=== PATIENT | male | born 1950 | race Caucasian/White ===

== ENCOUNTER 2021-01-01 14:50 | Inpatient (IN) | payer MEDICARE, MEDICAID ==
--- NOTE | 2021-01-01 15:10 | NUR ---
Admission Note with Justification for Admission to [facility] Patient admitted to [facility] for protective oversight for emergency stabilization of acute psychiatric crisis. Pt admitted from: SNF Mode of arrival: EMS Accompanied By: EMS Precipitating behaviors that initiated intake and admission: Patient was reported to be depressed, oversleeping, under eating, refusing medications, stating he wanted to , and had plan to overdose on medications Description of failure of out patient attempts at stabilization in previous setting list behavior and medication trials: None attempted Behaviors and assessment findings upon admission: Patient depressed, calm, and cooperative on arrival. He is mildly confused to day/date and situation, stating that he is here to have his medications adjusted and that he would only be here for about 3 days. Patient stayed withdrawn to room after assessment, declining to go to the day room. He states he still wants to but did not answer when asked if he had a plan. Plan: Admit for protective oversight for adjustment and stabilization of medications, behaviors and mood. Intense treatment regimen including groups, medication adjustments, therapy, consistent regimen for ADL's, self care, and sleep hygiene. Daily monitoring by Inpatient staff, Psychiatry, and Medical Physician.
[2021-01-01] MEDS ORDERED: DULO60CA6 PO (15:27)
[2021-01-01] MEDS ORDERED: METF1000 PO (15:27)
[2021-01-01] MEDS ORDERED: ACET325T21 PO (15:27)
[2021-01-01] MEDS ORDERED: ONDA-84 PO (15:27)
[2021-01-01] MEDS ORDERED: GLIP5TAB10 PO (15:27)
[2021-01-01] MEDS ORDERED: LISI20TA18 PO (15:27)
[2021-01-01] MEDS ORDERED: DICL75TA PO (15:27)
[2021-01-01] MEDS ORDERED: MAGNESIUM HYDROXIDE 2,400 MG/30 ML ORAL.SUSP. PO PRN (15:30)
[2021-01-01] MEDS ORDERED: MAG HYDROX/AL HYDROX/SIMETH 30 ML ORAL.SUSP PO PRN (15:30)
[2021-01-01] MEDS ORDERED: ACETAMINOPHEN 325 MG TABLET PO PRN (15:30)
[2021-01-01] MEDS ORDERED: METHYL SALICYLATE/MENTHOL TOPICAL OINTMENT 57GM TUBE. TP PRN (15:30)
[2021-01-01] MEDS ORDERED: ONDANSETRON ODT 4 MG TAB.RAPDIS PO PRN (16:00)
--- NOTE | 2021-01-01 17:02 | RAD ---
CT HEAD/BRAIN WO History: Reason: ams / Spl. Instructions: / History: Comparison: May 29, 2020 Technique: Noncontrast CT imaging was performed of the head. Exposure: One or more of the following individualized dose reduction techniques were utilized for thi s examination: 1. Automated exposure control 2. Adjustment of the mA and/or kV according to patient size 3. Use of iterative reconstruction technique. Findings: No intracranial hemorrhage. Moderately dilated lateral and third ventricles, unchanged. Crowding of sulci at the skull vertex. Pr ominence of the sylvian fissures. Moderate foci of decreased attenuation within the hemispheric white matter, most often due to chronic microvascular ischemia, unchanged. Chronic right basal ganglia lacunar infarct. Imaged orbits are unremarkable. Mild paranasal sinus mucosal thickening. Mastoid air cells are clear. No acute calvarial fracture. Impression: 1. No acute intracranial abnormality. 2. Unchanged dilated ventricles with additional findings suggestive of normal pressure hydrocephalus in the appropriate clinical setting. Electronically signed by: Jimmy Saucedo DO (01/01/2021 5:00 PM) MELE
[2021-01-01] MEDS: glipiZIDE 5 MG TABLET PO SCH (17:43)
[2021-01-01] MEDS: metFORMIN 500 MG TABLET PO SCH (17:43)
[2021-01-01 19:46] LABS: BASO % 0 % (0-3); EOS # 0.3 x10^3/uL (0.0-0.7); EOS % 3 % (0-3); HEMOGLOBIN 13.4 g/dL (13.0-17.5); LYMPH # 1.9 x10^3/uL (1.0-4.8); LYMPH % 21 % (24-48); MEAN CORPUSCULAR HEMOGLOBIN 31 pg (25-35); MEAN CORPUSCULAR HGB CONC 33 g/dL (31-37); MEAN CORPUSCULAR VOLUME 94 fL (79-100); MONO # 0.4 x10^3/uL (0.0-1.1); MONO % 5 % (0-9); NEUT # 6.3 x10^3uL (1.8-7.7); NEUT % 70 % (31-73); PLATELET COUNT 306 x10^3/uL (140-400); RED BLOOD COUNT 4.38 x10^6/uL (4.30-5.70); RED CELL DISTRIBUTION WIDTH 14.5 % (11.5-14.5); WHITE BLOOD COUNT 8.9 x10^3/uL (4.0-11.0)
[2021-01-01 20:00] LABS: ALBUMIN 3.7 g/dL (3.4-5.0); TOTAL PROTEIN 7.4 g/dL (6.4-8.2)
[2021-01-01 20:01] LABS: CREATININE 1.4 mg/dL (0.7-1.3); GFR 50.2; MAGNESIUM 1.9 mg/dL (1.8-2.4); POTASSIUM 4.3 mmol/L (3.5-5.1); TOTAL BILIRUBIN 0.3 mg/dL (0.2-1.0)
[2021-01-01] MEDS: DICLOFENAC SODIUM 25 MG TABLET.DR PO SCH (21:02)
--- NOTE | 2021-01-01 21:05 | HP ---
ADMIT DATE: 01/01/2021 PSYCHIATRIC ADMISSION HISTORY AND EVALUATION This note covers elements not covered in my initial note 01/01/2021. IDENTIFYING DATA: The patient is a 70-year-old male referred to us from [facility] by Dr. Dailey, his primary care physician and at the behest of his , Amira Souza, who is his DPOA on account of worsening symptoms of depression, consequent to recognition of his short-term memory loss and suicidal ideation. The patient reportedly has been speaking to staff about overdosing. He was depressed about his impaired memory. Sleeping excessively, missing meals, tearful, noncompliant with treatment. He had failed outpatient psychiatric interventions. CHIEF COMPLAINT: "I came here today. Yes, I get depressed. I'm losing my memory." HISTORY OF PRESENT ILLNESS: The patient relates symptoms of depression, feeling hopeless, helpless, worthless with fleeting suicidal ideation, no plans, intent or attempt. He does have short-term memory deficits, which appear to be worsening. In the past, he does have a history of suicide attempt, but nothing recently. No clear history of bipolar disorder. PAST PSYCHIATRIC HISTORY: As above. MEDICAL HISTORY: Positive for low back pain, unsteadiness on feet, repeated falls, type 2 diabetes mellitus, Alzheimer's disease. ACCU-CHEKS: None. CODE STATUS: Full code. ALLERGIES: Negative. DIET: Diabetic regular. Ambulates with walker with assist. CURRENT PSYCHOTROPICS: Cymbalta 60 mg a day. FAMILY HISTORY: Noncontributory. SOCIAL HISTORY: No history of alcohol, drug abuse, physical, sexual or elder abuse. He is not known to be a perpetrator. REACTION TO HOSPITALIZATION: The patient accepting of it. ASSETS: Supportive family, stable living at the facility. REVIEW OF SYSTEMS: Ambulation impaired, in wheelchair. No CV, , pulmonary, eye, ENT system symptoms on review. MENTAL STATUS EXAMINATION: The patient is oriented to himself and situation. Speech has some latency, coherent. Abstraction fair, computation impaired, language function intact, attention span short. Mood and affect depressed, anxious, somewhat paranoid. No active suicidal ideation. He does have short-term memory deficits. LABORATORY DATA: Reviewed. IMPRESSION: Major depressive disorder, recurrent, severe; mild cognitive impairment versus major neurocognitive disorder, vascular Alzheimer's with delusion, depression; anxiety disorder, unspecified; impulse control disorder, unspecified. Rest as above. PLAN: Admit to Geropsychiatry Unit at [facility]. I will see the patient daily individually from a psychiatric standpoint. Medical followup with Dr. Dailey/Dr. Avendano. Continue current psychotropics. Observe baseline, adjust further as clinically indicated. ESTIMATED LENGTH OF STAY: 10-12 days. DISPOSITION: Plans back to [facility] when stable. IVAN CARRIZALES MD DR: DONNA/mackenzie JOB#: [id number] / [id number]
--- NOTE | 2021-01-01 22:45 | PDOC ---
Exam Note: Gold Note: Please also refer to the separate dictated note~for this date of service dictated separately.~Patient seen individually. Discussed the patient with Nursing staff reviewed the chart.~Reviewed interim history and current functioning. Reviewed vital signs,~Labs/ Radiology~and current medications noted below. Continue current treatment with the changes noted in the dictated addendum note Assessment: Labs: Laboratory Tests Test 01/01/21 19:24 White Blood Count 8.9 x10^3/uL (4.0-11.0) Red Blood Count 4.38 x10^6/uL (4.30-5.70) Hemoglobin 13.4 g/dL (13.0-17.5) Hematocrit 41.0 % (39.0-53.0) Mean Corpuscular Volume 94 fL (79-100) Mean Corpuscular Hemoglobin 31 pg (25-35) Mean Corpuscular Hemoglobin Concent 33 g/dL (31-37) Red Cell Distribution Width 14.5 % (11.5-14.5) Platelet Count 306 x10^3/uL (140-400) Neutrophils (%) (Auto) 70 % (31-73) Lymphocytes (%) (Auto) 21 % (24-48) L Monocytes (%) (Auto) 5 % (0-9) Eosinophils (%) (Auto) 3 % (0-3) Basophils (%) (Auto) 0 % (0-3) Neutrophils # (Auto) 6.3 x10^3uL (1.8-7.7) Lymphocytes # (Auto) 1.9 x10^3/uL (1.0-4.8) Monocytes # (Auto) 0.4 x10^3/uL (0.0-1.1) Eosinophils # (Auto) 0.3 x10^3/uL (0.0-0.7) Basophils # (Auto) 0.0 x10^3/uL (0.0-0.2) D-Dimer (Clari) 0.30 mg/L (0.00-0.50) Sodium Level 145 mmol/L (136-145) Potassium Level 4.3 mmol/L (3.5-5.1) Chloride Level 107 mmol/L (98-107) Carbon Dioxide Level 28 mmol/L (21-32) Anion Gap 10 (6-14) Blood Urea Nitrogen 23 mg/dL (8-26) Creatinine 1.4 mg/dL (0.7-1.3) H Estimated GFR (Cockcroft-Gault) 50.2 BUN/Creatinine Ratio 16 (6-20) Glucose Level 142 mg/dL (70-99) H Calcium Level 9.0 mg/dL (8.5-10.1) Magnesium Level 1.9 mg/dL (1.8-2.4) Total Bilirubin 0.3 mg/dL (0.2-1.0) Aspartate Amino Transferase (AST) 13 U/L (15-37) L Alanine Aminotransferase (ALT) 20 U/L (16-63) Alkaline Phosphatase 50 U/L (46-116) Total Protein 7.4 g/dL (6.4-8.2) Albumin 3.7 g/dL (3.4-5.0) Albumin/Globulin Ratio 1.0 (1.0-1.7) Current Medications: Meds: Current Medications Medications (Trade) Dose Ordered Sig/Kaylee Route PRN Reason Start Time Stop Time Status Last Admin Dose Admin Glipizide (Glucotrol) 5 mg BIDWMEALS PO 01/01/21 17:00 01/01/21 17:43 Diclofenac Sodium (Voltaren) 75 mg BID PO 01/01/21 21:00 01/01/21 21:02 Metformin HCl (Glucophage) 1,000 mg BIDWMEALS PO 01/01/21 17:00 01/01/21 17:43 I have reviewed the current psychotropics carefully including drug interactions. Risk benefit ratio favors no change other than as noted in my dictated progress note. Diagnosis: Problems: (1) Major depressive disorder, recurrent episode, severe (2) Mild cognitive impairment (3) Major neurocognitive disorder (4) Dementia in Alzheimer's disease with delusions (5) Dementia in Alzheimer's disease with depression (6) Dementia of Alzheimer's type with behavioral disturbance (7) Dementia, vascular, with delusions (8) Dementia, vascular, with depression (9) Impulse control disorder, unspecified (10) Anxiety disorder, unspecified IVAN CARRIZALES MD Jan 01, 2021 22:45
[2021-01-01 22:48] VITALS: BP 126/73
--- NOTE | 2021-01-02 01:32 | NUR ---
PT APPROACHED FOR ASSESSMENT IN DAY . PT WAS COOPERATIVE DURING ASSESSMENT. PT TOOK HS MEDS WHOLE W/O DIFFICULTY. PT HAS ROOMMATE THAT CAN BE IMPULSIVE AT TIMES AND CAUSES BED ALARM TO SOUND. PT EXPRESSES HOW THIS CAUSES HIM DIFFICULTY WHILE TRYING TO SLEEP. PT HAS NO OTHER COMPLAINTS OR BEHAVIORS AT THIS TIME. WILL CONTINUE TO MONITOR.
[2021-01-02 05:35] VITALS: BP 151/83
--- NOTE | 2021-01-02 07:37 | EKG ---
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
[2021-01-02] MEDS: glipiZIDE 5 MG TABLET PO SCH ×2 (08:00→16:53)
[2021-01-02] MEDS: metFORMIN 500 MG TABLET PO SCH ×2 (08:20→16:53)
[2021-01-02] MEDS: DULoxetine HCL 60 MG CAPSULE.DR PO SCH (08:21)
[2021-01-02] MEDS: LISINOPRIL 20 MG TABLET PO SCH (08:21)
[2021-01-02] MEDS: DICLOFENAC SODIUM 25 MG TABLET.DR PO SCH ×2 (08:23→20:15)
[2021-01-02] MEDS ORDERED: FLU VACC QS 2020-21(6MOS+)/PF 0.5 ML SYRINGE. VAX IM ONE (09:00)
--- NOTE | 2021-01-02 11:15 | NUR ---
WEEKLY ACTIVITY THERAPY NOTE Date of Admission: 01/01/2021 Date of AT Assessment: TBD Precipitating behaviors that initiated intake and admission: Patient was reported to be depressed, oversleeping, under eating, refusing medications, stating he wanted to , and had plan to overdose on medications Goal aimed: TBD Initial Goal: TBD Weekly progress towards goal: NA Group participation level: NA Weekly highlights: arrived on unit Behaviors observed: new patient Plan: meet/ assess Pt Beneficial adaptations:
--- NOTE | 2021-01-02 11:50 | NUR ---
Treatment team orders as followed for today. Exelon Patch 4.6mg for 3 days then increase to 9.5mg, !mg Abilify added daily, Remeron 7.5mg QHS to help with sleeping. Also CT scan if not done. Was done on 01/01/21. Printed and copy placed in Dr José Miguel connelly. All orders placed.
--- NOTE | 2021-01-02 13:50 | NUR ---
PSYCHOSOCIAL ASSESSMENT ADMISSION DATE: 01/01/21 CONTACT INFORMATION: DPOA/Guardian Contact Name: Amira Souza- Contact Phone #: [phone] ETHNIC ORIGIN: REASONS FOR ADMISSION: Depressed Sig. Change Sleep Suicidal ideation ADDITIONAL ADMISSION COMMENTS: Per intake record, pt experiencing suicidal ideation, speaking to staff at facility about overdosing, depressed about his impaired memory, sleeping more, missing meals, tearful. REASON FOR ADMISSION IN PATIENT/FAMILY'S OWN WORDS: Per , "He is somewhat irritated and does not like change. We haven't been able to see each other in quite sometime, so this pandemic has caused more problems. He has been making suicidal statements at the facility about overdosing. He seems to have quite a bit of shaking and his paternal uncle had Parkinson's as does his brother in [place]; a mild case." PATIENT/FAMILY EXPECTATIONS FOR ADMISSION: Per , pt is an introvert and pretty much sticks to himself. She would like to see medications adjusted to help with mood, improve positive thinking, and eliminate suicidal thoughts. Pt reports that he knows his medications will be adjusted to help him. LIVING SITUATION: Patient lives with: [facility] Other living arrangements: [facility] Contact Name: Arabella Contact Address: [address] [place] [address] Contact Phone #: [phone] Contact Fax #: [phone] FAMILY RELATIONS: Marital Status: # of Marriages: 2 # of Children: 5 [facility] Family Support: Concerned Cooperative Involved in [place] Planning Additional Comments r/t Family: Pt has been to his , Amira Souza, for 16 years. He has two children from a previous marriage. Amira has three children; combined they have five. His children live locally. There isn't much contact with his children, with the exception of his oldest son calling him occasionally. Pt reports his oldest son to be Tonny who is about 30 y.o. and has two daughters of his own. Pt states that he has his hands full. Pt's parents are and he is the youngest of two. His brother, Kwadwo, is about eight years older than him. Pt's brother currently lives in [place]. SIGNIFICANT PSYCHIATRIC/MEDICAL HISTORY: Psychiatric/Treatment History: None Pertinent Family History: No psychiatric treatment. Paternal uncle and brother with Parkinson's. HISTORICAL DATA: Childhood Environment: [place] Nurturing Supportive Childhood Environment Additional Comments: Pt parents who are were considered to be loving and nurturing. Trauma History: None Is Trauma: Additional Comments: None Drug Abuse History last 12 months: No PERSONAL HISTORY: Vocational history: Pt worked for [employer] which is [employer] for 42 years. He worked his way up from [employer] into [employer]. service: N [employer] background: None Sexual orientation: Heterosexual Educational Level: Completed high school at [employer] in [facility]. Past/Present Interests/Hobbies: Painting, working on [employer], drawing, watching sports on television Financial support/resources: [facility]/Pension Monthly income: Unknown/Adequate Person handling finances: /DPOA Do you have a history of legal problems: N Cultural considerations: None SOCIAL RELATIONSHIPS-CURRENT/PAST: Psychiatrist: JANA Sequeira PCP: Dr. Dailey Counselor/Therapist: None Veterans' Administration: None Support Group: None [employer]: None Other relationships: /DPCHELSEA-Amira STRENGTHS & WEAKNESSES: Patient's strengths: Good family support Good verbal skills Stable living arrange Financial support Ambulatory Approachable Engaged Other patient strengths: Patient's weaknesses: Poor social skills Health problems Other Other patient weaknesses: Introvert, negative thought processing PRELIMINARY PLAN OF TREATMENT: Preliminary plan: Dec. Symp. Depression Decrease Isolation Promote Coping Skill Medication Stabilization Monitor Med Effects Control abnormal behavior Other preliminary treatment comments: While at [facility], pt will be encouraged to attend SW and recreational therapy groups. He will report any negative thoughts or suicidal ideation to medical staff. DISCHARGE PLANNING: Discharge planning/disposition: Current Living Arrange. Additional discharge needs identified: None at this time. ADDITIONAL INFORMATION: Other Pertinent Data: /DPCHELSEA is aware of treatment and available as needed for further needed information.
--- NOTE | 2021-01-02 14:13 | TX PLAN ---
Interdisciplinary Tx Plan Admission Information Jan 01, 2021 at 14:50 Legal Status (on Admission): Voluntary DPOA/Guardian Name: Amira Souza- Contact Other Contact Name: Madina/Arline Other Contact Verified Code Status: Full Code Allergies: Coded Allergies: No Known Drug Allergies (Unverified , 01/01/21) Diagnoses Primary Diagnosis: Major depressive disorder, recurrent, severe; mild cognitive impairment versus major neurocognitive disorder, vascular Alzheimer's with delusion, depression; anxiety disorder, unspecified; impulse control disorder, unspecified. Reasons for Admission: Depressed, Sig. Change Sleep, Suicidal ideation Problem in Patient's Words: Per , "He is somewhat irritated and does not like change. We haven't been able to see each other in quite sometime, so this pandemic has caused more problems. He has been making suicidal statements at the facility about overdosing. He seems to have quite a bit of shaking and his paternal uncle had Parkinson's as does his brother in [place]." Additional Admission Comments: Per intake record, pt experiencing suicidal ideation, speaking to staff at facility about overdosing, depressed about his impaired memory, sleeping more, missing meals, tearful. Problems Active Problems: Agitation, irritability, depression, negative thoughts, suicidal ideation, poor sleep Inactive Problems: None noted at this time. Pt Strengths/Limitations Ability for [place]: Poor Cognitive Functioning/Ability: Poor Communication Skills/Ability: Fair Financial Resources: Fair Insight/Judgement: Poor Intellectual Ability: Fair Physical Health: Poor Social Skills: Fair Stability in Family: Fair Stability in School/Work: Good Verbal Skills: Good Discharge Criteria Discharge Criteria: No need for close observ., Adequate arrangements @DC, Verbal commit med comply, Improved behavior, Improved mood/thought Other Discharge Comments: Absent of SI Preliminary Discharge Plan Preliminary DC Plan: Current Living Arrange. Special Precautions Special Precautions: Agitation/Assault Fall Risk: Moderate Initial D/C Plan Plan is to return to [facility]. Identified Discharge Needs: None at this time. Currently Utilized Resources Currently Utilized Resources/P: PCP-Dr. Dailey Psychiatry-Nina Saira /DPOA-Amira Souza Living facility-[facility] Referrals Community Resources: None noted at this time. Identified Problems/Hx/Goals Objectives/Short-Term Goals Short Term Goals: Control abnormal behavior, Decrease Isolation, Dec. Symp. Depression, Medication Stabilization, Monitor Med Effects, Promote Coping Skill Short Term Goals in Patient's: To improve negative thoughts, eliminate suicidal ideation, and have medication stabilized to feel better. Interventions/Frequency Staff Interventions/Frequency&: Psychiatry to assess pt three times per week for medication management. Nursing to assess behaviors, monitor medications, and complete 15 minute checks daily. Social Work to see pt at least two times weekly to aid in return to placement. Activities to encourage pt to participate in group activities daily. History Vocational History: Pt worked for [employer] which is [employer] for 42 years. He worked his way up from [employer] into [employer]. Education: Completed high school at [employer] in [facility]. Community Follow-up PCP-Dr. Dailey Psychiatry-Matti Chávez Community Provider/Family Inpu: /DPOA, Amira, provided insight into pt medical and social history. Amira available as needed. Treatment Plan Explained Patient/Ep Tech had this treatment plan explained to him/her as indicated by the signature below and has been given the opportunity to ask questions and make suggestions: Date: Patient/Ep Tech Signature: HILARY GARRETT Jan 02, 2021 14:13
[2021-01-02 14:40] LABS: THYROID STIM HORMONE (TSH) 0.992 uIU/mL (0.358-3.740)
--- NOTE | 2021-01-02 15:26 | NUR ---
Patient was cooperative but anxious this AM at time of assessment. He was worried aout his pants and what we did with them. He called his and told her that we took his pants and that he did not sleep well. We are adding some medications for tonight and we will see how he sleeps and the patient was much less anxious once I explained where his clothes were and what was going on. Patient took medications whole with no problems and was given his flu vaccine in R deltoid. Patient has no further complaints and there are no concerns at this time.
[2021-01-02 16:18] VITALS: BP 125/71
[2021-01-02 19:08] LABS: THYROXINE 6.3 ug/dL (4.5-12.0)
[2021-01-02] MEDS: MIRTAZAPINE 7.5 MG TABLET. PO SCH (20:14)
--- NOTE | 2021-01-02 20:56 | PDOC ---
Exam Note: Gold Note: Please also refer to the separate dictated note~for this date of service dictated separately.~Patient seen individually. Discussed the patient with Nursing staff reviewed the chart.~Reviewed interim history and current functioning. Reviewed vital signs,~Labs/ Radiology~and current medications noted below. Continue current treatment with the changes noted in the dictated addendum note Assessment: Vital Signs/I&O: Vital Signs Date Time Temp Pulse Resp B/P (MAP) Pulse Ox O2 Delivery O2 Flow Rate FiO2 01/02/21 16:18 98.2 55 16 125/71 (89) 97 01/02/21 05:35 Room Air I & O 01/01/21 01/01/21 01/02/21 14:59 22:59 06:59 Intake Total 440 ml Balance 440 ml Labs: Laboratory Tests Test 01/02/21 08:00 Glucose (Fingerstick) 73 mg/dL (70-99) Current Medications: Meds: Current Medications Medications (Trade) Dose Ordered Sig/Kaylee Route PRN Reason Start Time Stop Time Status Last Admin Dose Admin Duloxetine HCl (Cymbalta) 60 mg DAILY PO 01/02/21 09:00 01/02/21 08:21 Lisinopril (Prinivil) 20 mg DAILY PO 01/02/21 09:00 01/02/21 08:21 Diclofenac Sodium (Voltaren) 75 mg BID PO 01/01/21 21:00 01/02/21 20:15 Influenza Virus Vaccine Quadrival (Fluzone Quad [id number] Syringe) 0.5 ml ONCE ONCE VAX IM 01/02/21 09:00 01/02/21 09:01 DC 01/02/21 09:00 Mirtazapine (Remeron) 7.5 mg QHS PO 01/02/21 21:00 01/02/21 20:14 I have reviewed the current psychotropics carefully including drug interactions. Risk benefit ratio favors no change other than as noted in my dictated progress note. Diagnosis: Problems: (1) Impulse control disorder, unspecified (2) Major depressive disorder, recurrent episode, severe (3) Mild cognitive impairment (4) Anxiety disorder, unspecified (5) Dementia, vascular, with depression (6) Dementia, vascular, with delusions (7) Dementia of Alzheimer's type with behavioral disturbance (8) Dementia in Alzheimer's disease with depression (9) Dementia in Alzheimer's disease with delusions (10) Major neurocognitive disorder IVAN CARRIZALES MD Jan 02, 2021 20:56
[2021-01-02 21:38] LABS: BACTERIA,URINE 0 /HPF (0-FEW); BILIRUBIN,URINE NEG (NEG); CLARITY,URINE CLEAR; COLOR,URINE YELLOW; GLUCOSE,URINE NEG (NEG); NITRITE,URINE NEG (NEG); RBC,URINE 0 /HPF (0-2); SQUAMOUS EPITHELIAL CELL,UR OCC /LPF; UROBILINOGEN,URINE 0.2 mg/dL (0.2 mg/dL); WBC,URINE 0 /HPF (0-4)
--- NOTE | 2021-01-02 23:37 | NUR ---
Patient had head CT W?O contrast. Dr Valdez gave order to consult Dr Shah regarding results: "unchanged dilated ventricles with additional findings suggestive of normal pressure hydrocephalus in the appropriate clinical setting". Consult order placed and will page Dr shah in the morning to advise him.
[2021-01-03 00:07] LABS: HEMOGLOBIN A1C 5.2 % (4.8-5.6)
--- NOTE | 2021-01-03 01:41 | NUR ---
Patient asked to call his multiple times after 2100. He was advised that it was too late and he would have to ask to call her tomorrow after breakfast. patient cooperative with assessment and medications were taken whole. Patient oriented to self only at this time stating it is 2009 and he is at "daycare". Patient stated that he did not want to share a room with his peer, as he did not "sleep at all last night". Patient appears to be sleeping well tonight.
[2021-01-03 06:00] VITALS: BP 94/60
[2021-01-03] MEDS: ARIPiprazole 2 MG TABLET PO SCH (07:54)
[2021-01-03] MEDS: glipiZIDE 5 MG TABLET PO SCH ×2 (07:54→16:36)
[2021-01-03] MEDS: DULoxetine HCL 60 MG CAPSULE.DR PO SCH (07:55)
[2021-01-03] MEDS: metFORMIN 500 MG TABLET PO SCH ×2 (07:55→16:37)
[2021-01-03] MEDS: LISINOPRIL 20 MG TABLET PO SCH (07:56)
[2021-01-03] MEDS: RIVASTIGMINE 4.6MG PATCH. TD SCH (07:59)
--- NOTE | 2021-01-03 08:19 | PDOC ---
Exam Note: Gold Note: This note is a late entry for 01/02/2021 covers elements not covered in my initial note. Subjective: The patient was reviewed in the morning of 01/02/2021 for a treatment team meeting with Marva Urrutia, Kacey Beebe and Unique (social services analyst), Estefani, activity therapy and Gela GUTIERREZ, discussed and reviewed the chart. He slept 9-1/2 hours previous night. He said he slept quality of his sleep. Last night was very poor because of noise on the unit. We reviewed his history at length at the treatment team meeting. 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 He is in his second marriage for the past 16 years, has 2 children and brother lives in [place] who suffers from Parkinsons disease. CT head shows questionable normal pressure hydrocephalus. We will consult Dr. Shah, Neurology to assist. Review of Systems: Ambulation impaired. No CV, , pulmonary, eye, ENT system symptoms on review. Mental Status Exam: The patient is oriented to himself and situation. Speech has some latency, coherent. Often response is monosyllabic. Abstraction is fair. Computation impaired. Language function is intact. Mood and affect with drawn. Laboratory Data: Reviewed. Impression: Major depressive disorder, severe. Mild cognitive impairment versus major neurocognitive disorder Alzheimers vascular with depression, delusion. Anxiety disorder unspecified. Impulse control disorder unspecified. Plan: Continue Cymbalta 60 mg a day. Augment with Abilify 1 mg a day. Start Remeron 7.5 mg h.s. to help with insomnia and given his history of Alzheimers we will start Exelon patch 4.5 mg a day for 3 days, then 9.5 mg a day thereafter. Adjust further as clinically indicated. Assessment: Vital Signs/I&O: Vital Signs Date Time Temp Pulse Resp B/P (MAP) Pulse Ox O2 Delivery O2 Flow Rate FiO2 01/03/21 07:56 54 94/60 01/03/21 06:00 97.8 16 95 Room Air I & O 01/02/21 01/02/21 01/03/21 15:00 23:00 07:00 Intake Total 440 ml 120 ml Balance 440 ml 120 ml Labs: Laboratory Tests Test 01/02/21 20:05 Urine Collection Type Clean catch Urine Color Yellow Urine Clarity Clear Urine pH 6.5 Urine Specific [place] 1.020 Urine Protein Neg (NEG-TRACE) Urine Glucose (UA) Neg mg/dL (NEG) Urine Ketones (Stick) Neg mg/dL (NEG) Urine Blood Neg (NEG) Urine Nitrite Neg (NEG) Urine Bilirubin Neg (NEG) Urine Urobilinogen Dipstick 0.2 mg/dL (0.2 mg/dL) Urine Leukocyte Esterase Neg (NEG) Urine RBC 0 /HPF (0-2) Urine WBC 0 /HPF (0-4) Urine Squamous Epithelial Cells Occ /LPF Urine Bacteria 0 /HPF (0-FEW) Current Medications: Meds: Laboratory Tests Test 01/02/21 20:05 Urine Collection Type Clean catch Urine Color Yellow Urine Clarity Clear Urine pH 6.5 Urine Specific [place] 1.020 Urine Protein Neg Urine Glucose (UA) Neg mg/dL Urine Ketones (Stick) Neg mg/dL Urine Blood Neg Urine Nitrite Neg Urine Bilirubin Neg Urine Urobilinogen Dipstick 0.2 mg/dL Urine Leukocyte Esterase Neg Urine RBC 0 /HPF Urine WBC 0 /HPF Urine Squamous Epithelial Cells Occ /LPF Urine Bacteria 0 /HPF Current Medications Medications (Trade) Dose Ordered Sig/Kaylee Route PRN Reason Start Time Stop Time Status Last Admin Dose Admin Multi-Ingredient Ointment (Analgesic [place]ent) 1 regina PRN QID PRN TP MUSCLE PAIN 01/01/21 15:30 Al Hydroxide/Mg Hydroxide (Mylanta Plus Xs) 15 ml PRN AFTMEALHC PRN PO DYSPEPSIA 01/01/21 15:30 Magnesium Hydroxide (Milk Of Magnesia) 2,400 mg PRN QHS PRN PO CONSTIPATION 01/01/21 15:30 Acetaminophen (Tylenol) 650 mg PRN Q4HRS PRN PO PAIN 01/01/21 15:30 Duloxetine HCl (Cymbalta) 60 mg DAILY PO 01/02/21 09:00 01/03/21 07:55 Glipizide (Glucotrol) 5 mg BIDWMEALS PO 01/01/21 17:00 01/03/21 07:54 Lisinopril (Prinivil) 20 mg DAILY PO 01/02/21 09:00 01/02/21 08:21 Diclofenac Sodium (Voltaren) 75 mg BID PO 01/01/21 21:00 01/02/21 20:15 Metformin HCl (Glucophage) 1,000 mg BIDWMEALS PO 01/01/21 17:00 01/03/21 07:55 Ondansetron HCl (Zofran Odt) 4 mg PRN Q6HRS PRN PO NAUSEA/VOMITING 01/01/21 16:00 Influenza Virus Vaccine Quadrival (Fluzone Quad Syringe) 0.5 ml ONCE ONCE VAX IM 01/02/21 09:00 01/02/21 09:01 DC 01/02/21 09:00 Rivastigmine (Exelon) 1 patch DAILY TD 01/03/21 09:00 01/05/21 09:00 01/03/21 07:59 Rivastigmine (Exelon) 1 patch DAILY TD 01/06/21 09:00 Aripiprazole (Abilify) 1 mg DAILY PO 01/03/21 09:00 01/03/21 07:54 Mirtazapine (Remeron) 7.5 mg QHS PO 01/02/21 21:00 01/02/21 20:14 Current Medications Medications (Trade) Dose Ordered Sig/Kaylee Route PRN Reason Start Time Stop Time Status Last Admin Dose Admin Duloxetine HCl (Cymbalta) 60 mg DAILY PO 01/02/21 09:00 01/03/21 07:55 Lisinopril (Prinivil) 20 mg DAILY PO 01/02/21 09:00 01/02/21 08:21 Influenza Virus Vaccine Quadrival (Fluzone Quad Syringe) 0.5 ml ONCE ONCE VAX IM 01/02/21 09:00 01/02/21 09:01 DC 01/02/21 09:00 Rivastigmine (Exelon) 1 patch DAILY TD 01/03/21 09:00 01/05/21 09:00 01/03/21 07:59 Aripiprazole (Abilify) 1 mg DAILY PO 01/03/21 09:00 01/03/21 07:54 Mirtazapine (Remeron) 7.5 mg QHS PO 01/02/21 21:00 01/02/21 20:14 I have reviewed the current psychotropics carefully including drug interactions. Risk benefit ratio favors no change other than as noted in my dictated progress note. Diagnosis: Problems: (1) Impulse control disorder, unspecified (2) Major depressive disorder, recurrent episode, severe (3) Mild cognitive impairment (4) Anxiety disorder, unspecified (5) Dementia, vascular, with depression (6) Dementia, vascular, with delusions (7) Dementia of Alzheimer's type with behavioral disturbance (8) Dementia in Alzheimer's disease with depression (9) Dementia in Alzheimer's disease with delusions (10) Major neurocognitive disorder IVAN CARRIZALES MD Jan 03, 2021 08:19
[2021-01-03] MEDS: DICLOFENAC SODIUM 25 MG TABLET.DR PO SCH ×2 (10:04→20:03)
--- NOTE | 2021-01-03 12:33 | NUR ---
NURSING NOTE PT WAS IN DAY ROOM THIS AM UPON ASSESSMENT AND MEDICATION ADMINISTRATION. PT WAS MED COMPLIANT THIS AM. PT IS CALM AND COOPERATIVE THUS FAR, WAS IN DAY ROOM THIS MORNING PARTICIPATED IN MORNING GROUP. PT HAS EXELON PATCH ORDER, PLACED ON RIGHT SHOULDER. DR REGALADO EVALUATED PT TODAY. NO BEHAVIORS NOTED THUS FAR. WILL CONTINUE TO MONITOR. BRENDA DELAROSA.
--- NOTE | 2021-01-03 15:25 | NUR ---
ACTIVITY THERAPY ASSESSMENT Completed based on observation, interview and notes. Pt. was sitting on his bed in his room, asked BULLDOZER/LOADER/COMPACTOR/SCRAPER what room number he was in a couple times. He was agreeable to speak with BULLDOZER/LOADER/COMPACTOR/SCRAPER and answer assessment questions. He thought he was in [place], [place] and didn't know why he was here. BULLDOZER/LOADER/COMPACTOR/SCRAPER explained he was in [place], [place] and asked where Pt. was from and what he did for a living. 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 When asked about leisure interest/ hobbies, BULLDOZER/LOADER/COMPACTOR/SCRAPER needed to list activities and Pt. told her whether or not he enjoyed them. He does not like to read but he enjoys watching [employer] shows on TV, and listening to [employer] music. Pt's Psychosocial indicates Pt also enjoys painting, working on [employer] airplanes, drawing, and watching sports on TV. Pt. mentioned his , Amira and their two sons when asked about his family. Overall, Pt. needed a little extra time to process and give responses, he needs redirection/ promoting at times. He appeared slightly on edge/ tense and seemed a little concerned about peers. He thought he'd only be here a few days and denied seeing any doctors since admission. Notes indicate Pt. was admitted for SI but he did not mention that in this interview. He wondered where his clothes were and wanted to talk to his . [facility] was able to assist Pt. with a phone call to Amira. Initial goal aimed to increase socialization and engagement: Pt. will participate in at least one Activity Therapy group per day.
[2021-01-03 15:27] VITALS: BP 121/77
[2021-01-03] MEDS ORDERED: CYANOCOBALAMIN (VITAMIN B-12) 1,000 MCG/ML VIAL. IM ONE (18:45)
[2021-01-03] MEDS ORDERED: CHOLECALCIFEROL (VITAMIN D3) 50,000 UNIT CAPSULE PO SCH (18:45)
--- NOTE | 2021-01-03 19:12 | CONS ---
DATE OF CONSULTATION: 01/03/2021 REASON FOR CONSULTATION: Medical management. HISTORY OF PRESENT ILLNESS: The patient is a 70-year-old male patient, a resident at [facility], was referred to [facility] on account of worsening symptoms of depression, consequent to him recognizing his short-term memory loss and suicidal ideation. He has been talking nursing staff there about overdosing. He was depressed about his impaired memory, sleeping excessively, missing meals therefore noncompliant with treatment and therefore, the patient was admitted to [facility] for inpatient psychiatric stabilization. PAST MEDICAL HISTORY: Significant for chronic low back pain, unsteady feet, type 2 diabetes mellitus and Alzheimer's disease. PAST SURGICAL HISTORY: Unremarkable. ALLERGIES: He has no known drug allergies. MEDICATIONS: He is currently on following medications: He is on lisinopril 20 mg once a day, diclofenac sodium 75 mg twice a day, acetaminophen 650 mg every 4 hours, duloxetine 60 mg daily, Zofran 4 mg every 6 hours, metformin 1000 mg twice a day, glipizide 5 mg twice a day. FAMILY HISTORY: Noncontributory. SOCIAL HISTORY: He is ; however, he currently resides at [facility] in [place]. He does not smoke, drink alcohol or use any recreational drugs. REVIEW OF SYSTEMS: As per history of present illness. PHYSICAL EXAMINATION: GENERAL: On examining him, he looked well and was clearly in no apparent respiratory distress, pale, but no jaundice, cyanosis or thyromegaly. No jugular venous distention or limb edema. VITAL SIGNS: His heart rate was 73, blood pressure was 121/77, temperature 97.4, respiratory rate was 19 and oxygen saturation was 96% on room air. HEAD, EYES, EARS, NOSE AND THROAT: Showed he is normocephalic, atraumatic. NECK: Supple. HEART: Showed normal first and second heart sounds. No gallop or murmur. CHEST: Clear to auscultation. No crepitation or rhonchi. ABDOMEN: Distended, soft, nontender. NEUROLOGIC: He is awake, alert, responding at times appropriately. All cranial nerves intact. EXTREMITIES: He moves extremities without difficulty. He is mostly wheelchair bound. He is able to ambulate with a walker with assist. He managed to self-transfer. LABORATORY DATA: Showed white cell count of 8900, hemoglobin 13.4, hematocrit 41, MCV 94 and platelet count of 306,000 with normal manual differential. His D-dimer was 0.3 mg/dL. His chemistry showed a serum sodium of 145, potassium 4.3, chloride 107, bicarbonate 28, anion gap of 10, BUN 23, creatinine 1.4, estimated GFR was 50 mL per minute, his glucose 142, calcium was 9, magnesium was 1.9. Total bilirubin, AST, ALT, alkaline phosphatase were normal. Total protein 7.4, albumin was 3.7. Serum triglycerides 109, total cholesterol 175, LDL was 106, VLDL was 21, HDL was 48 and the ratio was 3. His TSH was 0.992. His vitamin B12 was 267 pg/mL. His 25-hydroxycholecalciferol was 15.2, his total T4 and total T3 are 6.3 and 59 respectively. His hemoglobin A1c was 5.2. Urinalysis was essentially unremarkable and his treponema pallidum antibodies were nonreactive. The patient is a 70-year-old male patient, a resident at [facility] in [place], who was admitted on account of worsening symptoms of depression, consequent on recognition of his short-term memory loss and suicidal ideation. He has been reportedly speaking to nursing staff there about overdosing. He was admitted to this unit for inpatient psychiatric stabilization. Medically, he has multiple medical problems including hypertension, type 2 diabetes mellitus. He also has chronic kidney disease. He has vitamin D deficiency and also possibly vitamin B12 deficiency. My plan is to replenish his vitamin D and probably start him on vitamin B12 also. KORINA REYES MD DR: JAMES/mackenzie JOB#: [id number] / [id number]
[2021-01-03] MEDS: MIRTAZAPINE 7.5 MG TABLET. PO SCH (20:03)
--- NOTE | 2021-01-03 21:01 | PDOC ---
Exam Note: Gold Note: Please also refer to the separate dictated note~for this date of service dictated separately.~Patient seen individually. Discussed the patient with Nursing staff reviewed the chart.~Reviewed interim history and current functioning. Reviewed vital signs,~Labs/ Radiology~and current medications noted below. Continue current treatment with the changes noted in the dictated addendum note Assessment: Vital Signs/I&O: Vital Signs Date Time Temp Pulse Resp B/P (MAP) Pulse Ox O2 Delivery O2 Flow Rate FiO2 01/03/21 15:27 97.4 73 19 121/77 (92) 96 Room Air I & O 01/02/21 01/02/21 01/03/21 15:00 23:00 07:00 Intake Total 440 ml 120 ml Balance 440 ml 120 ml Current Medications: Meds: Current Medications Medications (Trade) Dose Ordered Sig/Kaylee Route PRN Reason Start Time Stop Time Status Last Admin Dose Admin Rivastigmine (Exelon) 1 patch DAILY TD 01/03/21 09:00 01/05/21 09:00 01/03/21 07:59 Aripiprazole (Abilify) 1 mg DAILY PO 01/03/21 09:00 01/03/21 07:54 Vitamin D (Vitamin D3) 50,000 unit WEEKLY PO 01/03/21 18:45 01/03/21 19:23 Cyanocobalamin (Vitamin B-12) 1,000 mcg 1X ONCE IM 01/03/21 18:45 01/03/21 18:46 DC 01/03/21 19:23 I have reviewed the current psychotropics carefully including drug interactions. Risk benefit ratio favors no change other than as noted in my dictated progress note. Diagnosis: Problems: (1) Impulse control disorder, unspecified (2) Major depressive disorder, recurrent episode, severe (3) Mild cognitive impairment (4) Anxiety disorder, unspecified (5) Dementia, vascular, with depression (6) Dementia, vascular, with delusions (7) Dementia of Alzheimer's type with behavioral disturbance (8) Dementia in Alzheimer's disease with depression (9) Dementia in Alzheimer's disease with delusions (10) Major neurocognitive disorder IVAN CARRIZALES MD Jan 03, 2021 21:01
--- NOTE | 2021-01-04 00:49 | NUR ---
Patient cooperative with staff in the shower. He thought we had thrown his dirty white socks away and was upset. He calmed down after we told him they were in the wash. Patient walked from his room to the day room without his walker. He stated he forgot it. Nurse got walker for patient and he used it when he returned to his room. Patient received first weekly vitamin D and a vitamin B12 shot for vitamin deficiency. He was compliant with all medications. Patient has not made any suicidal statements.
[2021-01-04 06:05] VITALS: BP 107/60
[2021-01-04] MEDS: glipiZIDE 5 MG TABLET PO SCH ×2 (08:27→16:37)
[2021-01-04] MEDS: RIVASTIGMINE 4.6MG PATCH. TD SCH (08:27)
[2021-01-04] MEDS: ARIPiprazole 2 MG TABLET PO SCH (08:27)
[2021-01-04] MEDS: metFORMIN 500 MG TABLET PO SCH ×2 (08:27→16:37)
[2021-01-04] MEDS: DICLOFENAC SODIUM 25 MG TABLET.DR PO SCH ×2 (08:27→20:29)
[2021-01-04] MEDS: DULoxetine HCL 60 MG CAPSULE.DR PO SCH (08:28)
[2021-01-04] MEDS: LISINOPRIL 20 MG TABLET PO SCH (08:28)
--- NOTE | 2021-01-04 09:42 | CONS ---
DATE OF CONSULTATION: 01/03/2021 NEUROLOGY CONSULTATION REASON FOR CONSULTATION: Dementia and abnormal head CT scan. HISTORY OF PRESENT ILLNESS: This is a 70-year-old right-handed male who was admitted to [facility] on 01/01/2021 on account of worsening of symptoms of depressions and recurrent suicidal ideation along with short-term memory. The patient is a resident of a retirement, stated he has been having more suicidal ideations. He has been sleeping excessively and missing meals. He has been noncompliant with medication as well. Neuro consult was requested because of abnormal head CT scan, which revealed generalized cortical atrophy with dilatation of the ventricles suggestive of possible normal pressure hydrocephalus. The patient has had a trial of dementia, postural instability and frequency to falling along with intermittent urinary incontinence. Currently, the patient denies headaches, visual disturbances, chest pain, shortness of breath or palpitations, dysarthria or dysphagia. The patient stated he is going to stay few days here because he believes he was overdosed on medications at the retirement. PAST MEDICAL HISTORY: Significant for chronic lower back pain, possible peripheral neuropathy, diabetes mellitus type 2, and slowly progressive dementia, hypertension, history of chronic kidney disease. SOCIAL HISTORY: The patient is . He is a resident at a [facility] in [place]. He denies smoking, alcohol drinking, or illicit drug use. CURRENT MEDICATIONS: Exelon patch 9.5 mg daily, vitamin D3 50,000 units p.o. weekly, Abilify 1 mg daily, mirtazapine 7.5 mg at bedtime, lisinopril 20 mg daily, Cymbalta 60 mg daily, diclofenac 75 mg b.i.d., metformin 1000 mg b.i.d., glipizide 5 mg b.i.d., Tylenol p.r.n. ALLERGIES: No known drug allergies. REVIEW OF SYSTEMS: A 12-point review of system was performed as mentioned above in history of present illness. PHYSICAL EXAMINATION: GENERAL: Well-developed, well-nourished male, not in acute distress. He weighs 96.9 kilos. VITAL SIGNS: Blood pressure 121/77, respiratory rate 19, pulse is 73 and regular, temperature is 97.4, oxygen saturation is 96% on room air. HEENT: Normocephalic, atraumatic, otherwise unremarkable. NECK: Supple. Negative for carotid bruit, lymphadenopathy or thyromegaly. LUNGS: Clear to A and P. CARDIOVASCULAR: Regular rate and rhythm, normal S1, S2. There is no S3, S4 or murmur. ABDOMEN: Soft. Bowel sounds positive. EXTREMITIES: Negative for cyanosis, clubbing or edema. NEUROLOGICAL: Mental Status: The patient is alert and oriented to himself and situation. Speech is slow, but coherent. There is no language dysfunction. Memory, judgment, and abstracting thinking are fair. The patient denies hallucination or delusion. CRANIAL NERVES: Visual cota are full. The pupils are reactive to light and accommodation. The extraocular movements are intact. There is no nystagmus. There is no facial motor or sensory deficits. Hearing is intact bilaterally. The palate is elevated symmetrically. Sternocleidomastoid muscles are powerful bilaterally. The patient shrugs his shoulders symmetrically, protrudes his tongue in the midline without fasciculation or atrophy. MOTOR EXAMINATION: No focal muscle bulk was seen. The tone is normal. The strength is 4/5 throughout. SENSORY EXAMINATION: Revealed diminished pinprick and light touch senses in patchy distributions in distal lower extremities. Deep tendon reflexes were asymmetric and hypoactive with absent Achilles responses. GAIT: Not tested as the patient is using a chair most of the time and he is steady on his feet. DIAGNOSTIC DATA: Head CT scan without contrast revealed no acute intracranial process and dilated ventricles suggestive of normal pressure hydrocephalus. LABORATORY DATA: CBC revealed white blood cells of 8.9 thousand, hemoglobin 13.4, hematocrit 41, platelet count 306,000. Chemistry: Sodium 145, potassium 4.3, chloride 107, CO2 of 28, BUN 13, creatinine 1.4, glucose 142, A1c is 5.2, calcium 9, magnesium 1.9. Liver enzymes are normal with low AST. Lipid profile revealed slightly elevated LDL at 106, otherwise unremarkable. Vitamin B12 is in the lower range at 267 with low vitamin D at 15.2 and normal TSH and T4. Urinalysis negative for urinary tract infections. IMPRESSION: 1. History of dementia, probably of Alzheimer type. 2. Abnormal head CT scan consistent with dilated ventricles and possible normal pressure hydrocephalus. 3. Depression, anxiety disorder and intermittent suicidal ideation. 4. Multiple medical problems include chronic lower back pain, possible peripheral neuropathy in the lower extremities versus lumbosacral radiculopathy and diabetes mellitus type 2 and chronic kidney disease. 5. Low vitamin B12. RECOMMENDATIONS: 1. Start the patient on vitamin B12. 2. Continue with current medical and psychiatric care. 3. Physical therapy evaluation. M Saranya REGALADO MD DR: JENY/mackenzie JOB#: [id number] / [id number]
--- NOTE | 2021-01-04 10:05 | NUR ---
Patient is calm and cooperative. patients stated he slept well and has no further needs at this time.
[2021-01-04 15:54] VITALS: BP 150/83
[2021-01-04] MEDS: MIRTAZAPINE 7.5 MG TABLET. PO SCH (20:29)
--- NOTE | 2021-01-04 20:51 | PDOC ---
Exam Note: Gold Note: Please also refer to the separate dictated note~for this date of service dictated separately.~Patient seen individually. Discussed the patient with Nursing staff reviewed the chart.~Reviewed interim history and current functioning. Reviewed vital signs,~Labs/ Radiology~and current medications noted below. Continue current treatment with the changes noted in the dictated addendum note Assessment: Vital Signs/I&O: Vital Signs Date Time Temp Pulse Resp B/P (MAP) Pulse Ox O2 Delivery O2 Flow Rate FiO2 01/04/21 15:54 97.2 80 18 150/83 (105) 99 Room Air I & O 01/03/21 01/03/21 01/04/21 14:59 22:59 06:59 Intake Total 600 ml 360 ml Balance 600 ml 360 ml Labs: Laboratory Tests Test 01/04/21 07:21 Glucose (Fingerstick) 75 mg/dL (70-99) Current Medications: Meds: Laboratory Tests Test 01/04/21 07:21 Glucose (Fingerstick) 75 mg/dL Current Medications Medications (Trade) Dose Ordered Sig/Kaylee Route PRN Reason Start Time Stop Time Status Last Admin Dose Admin Multi-Ingredient Ointment (Analgesic [place]) 1 regina PRN QID PRN TP MUSCLE PAIN 01/01/21 15:30 Al Hydroxide/Mg Hydroxide (Mylanta Plus Xs) 15 ml PRN AFTMEALHC PRN PO DYSPEPSIA 01/01/21 15:30 Magnesium Hydroxide (Milk Of Magnesia) 2,400 mg PRN QHS PRN PO CONSTIPATION 01/01/21 15:30 Acetaminophen (Tylenol) 650 mg PRN Q4HRS PRN PO PAIN 01/01/21 15:30 Duloxetine HCl (Cymbalta) 60 mg DAILY PO 01/02/21 09:00 01/04/21 08:28 Glipizide (Glucotrol) 5 mg BIDWMEALS PO 01/01/21 17:00 01/04/21 16:37 Lisinopril (Prinivil) 20 mg DAILY PO 01/02/21 09:00 01/04/21 08:28 Diclofenac Sodium (Voltaren) 75 mg BID PO 01/01/21 21:00 01/04/21 20:29 Metformin HCl (Glucophage) 1,000 mg BIDWMEALS PO 01/01/21 17:00 01/04/21 16:37 Ondansetron HCl (Zofran Odt) 4 mg PRN Q6HRS PRN PO NAUSEA/VOMITING 01/01/21 16:00 Influenza Virus Vaccine Quadrival (Fluzone Quad Syringe) 0.5 ml ONCE ONCE VAX IM 01/02/21 09:00 01/02/21 09:01 DC 01/02/21 09:00 Rivastigmine (Exelon) 1 patch DAILY TD 01/03/21 09:00 01/05/21 09:00 01/04/21 08:27 Rivastigmine (Exelon) 1 patch DAILY TD 01/06/21 09:00 Aripiprazole (Abilify) 1 mg DAILY PO 01/03/21 09:00 01/04/21 08:27 Mirtazapine (Remeron) 7.5 mg QHS PO 01/02/21 21:00 01/04/21 20:29 Vitamin D (Vitamin D3) 50,000 unit WEEKLY PO 01/03/21 18:45 01/03/21 19:23 Cyanocobalamin (Vitamin B-12) 1,000 mcg 1X ONCE IM 01/03/21 18:45 01/03/21 18:46 DC 01/03/21 19:23 I have reviewed the current psychotropics carefully including drug interactions. Risk benefit ratio favors no change other than as noted in my dictated progress note. Diagnosis: Problems: (1) Impulse control disorder, unspecified (2) Major depressive disorder, recurrent episode, severe (3) Mild cognitive impairment (4) Anxiety disorder, unspecified (5) Dementia, vascular, with depression (6) Dementia, vascular, with delusions (7) Dementia of Alzheimer's type with behavioral disturbance (8) Dementia in Alzheimer's disease with depression (9) Dementia in Alzheimer's disease with delusions (10) Major neurocognitive disorder IVAN CARRIZALES MD Jan 04, 2021 20:51
--- NOTE | 2021-01-04 22:53 | NUR ---
Pt located in his room this evening laying down in bed. Pt A/O to name, , hospital and the month. Compliant with whole medication. States that he is leaving tomorrow.
[2021-01-05 06:14] VITALS: BP 129/75
[2021-01-05 08:16] VITALS: BP 129/75
[2021-01-05] MEDS: LISINOPRIL 20 MG TABLET PO SCH (08:16)
[2021-01-05] MEDS: ARIPiprazole 2 MG TABLET PO SCH (08:16)
[2021-01-05] MEDS: glipiZIDE 5 MG TABLET PO SCH (08:16)
[2021-01-05] MEDS: DULoxetine HCL 60 MG CAPSULE.DR PO SCH (08:16)
[2021-01-05] MEDS: metFORMIN 500 MG TABLET PO SCH (08:16)
[2021-01-05] MEDS: DICLOFENAC SODIUM 25 MG TABLET.DR PO SCH (08:17)
[2021-01-05] MEDS: RIVASTIGMINE 4.6MG PATCH. TD SCH (08:17)
--- NOTE | 2021-01-05 08:22 | PDOC ---
Exam Note: Gold Note: This note is a late entry for 01/03/2021 covers elements not covered in my initial note. Subjective: The patient was seen individually in the evening of 01/03/2021 with Svetlana GUTIERREZ, discussed and reviewed the chart. He slept 7 hours previous night. He has been calm, confused. Dr. Shah did see him for a questionable normal pressure hydrocephalus reported on CT head and Dr. Collazo report is awaited. Review of Systems: Ambulation impaired. No CV, , pulmonary, eye, ENT system symptoms on review. Mental Status Exam: The patient is oriented to himself and situation. She is not verbal, interactive, a little dismissive but otherwise pleasant as I met with him individually. Speech has some latency, coherent. Often response is monosyllabic. Abstraction is fair. Computation impaired. Language function is intact. Mood and affect withdrawn. Laboratory Data: Reviewed. Impression: Major depressive disorder, severe. Major neurocognitive disorder vascular with depression, delusion. Anxiety disorder unspecified. Impulse control disorder unspecified. Plan: Continue current psychotropics. Assessment: Vital Signs/I&O: Vital Signs Date Time Temp Pulse Resp B/P (MAP) Pulse Ox O2 Delivery O2 Flow Rate FiO2 01/05/21 08:16 67 129/75 01/05/21 06:14 97.7 18 94 01/04/21 15:54 Room Air I & O 01/04/21 01/04/21 01/05/21 15:00 23:00 07:00 Intake Total 600 ml 360 ml Balance 600 ml 360 ml Current Medications: Meds: Current Medications Medications (Trade) Dose Ordered Sig/Kaylee Route PRN Reason Start Time Stop Time Status Last Admin Dose Admin Multi-Ingredient Ointment (Analgesic [place]) 1 regina PRN QID PRN TP MUSCLE PAIN 01/01/21 15:30 Al Hydroxide/Mg Hydroxide (Mylanta Plus Xs) 15 ml PRN AFTMEALHC PRN PO DYSPEPSIA 01/01/21 15:30 Magnesium Hydroxide (Milk Of Magnesia) 2,400 mg PRN QHS PRN PO CONSTIPATION 01/01/21 15:30 Acetaminophen (Tylenol) 650 mg PRN Q4HRS PRN PO PAIN 01/01/21 15:30 Duloxetine HCl (Cymbalta) 60 mg DAILY PO 01/02/21 09:00 01/05/21 08:16 Glipizide (Glucotrol) 5 mg BIDWMEALS PO 01/01/21 17:00 01/05/21 08:16 Lisinopril (Prinivil) 20 mg DAILY PO 01/02/21 09:00 01/05/21 08:16 Diclofenac Sodium (Voltaren) 75 mg BID PO 01/01/21 21:00 01/05/21 08:17 Metformin HCl (Glucophage) 1,000 mg BIDWMEALS PO 01/01/21 17:00 01/05/21 08:16 Ondansetron HCl (Zofran Odt) 4 mg PRN Q6HRS PRN PO NAUSEA/VOMITING 01/01/21 16:00 Influenza Virus Vaccine Quadrival (Fluzone Quad Syringe) 0.5 ml ONCE ONCE VAX IM 01/02/21 09:00 01/02/21 09:01 DC 01/02/21 09:00 Rivastigmine (Exelon) 1 patch DAILY TD 01/03/21 09:00 01/05/21 09:00 01/05/21 08:17 Rivastigmine (Exelon) 1 patch DAILY TD 01/06/21 09:00 Aripiprazole (Abilify) 1 mg DAILY PO 01/03/21 09:00 01/05/21 08:16 Mirtazapine (Remeron) 7.5 mg QHS PO 01/02/21 21:00 01/04/21 20:29 Vitamin D (Vitamin D3) 50,000 unit WEEKLY PO 01/03/21 18:45 01/03/21 19:23 Cyanocobalamin (Vitamin B-12) 1,000 mcg 1X ONCE IM 01/03/21 18:45 01/03/21 18:46 DC 01/03/21 19:23 I have reviewed the current psychotropics carefully including drug interactions. Risk benefit ratio favors no change other than as noted in my dictated progress note. Diagnosis: Problems: (1) Impulse control disorder, unspecified (2) Major depressive disorder, recurrent episode, severe (3) Mild cognitive impairment (4) Anxiety disorder, unspecified (5) Dementia, vascular, with depression (6) Dementia, vascular, with delusions (7) Dementia of Alzheimer's type with behavioral disturbance (8) Dementia in Alzheimer's disease with depression (9) Dementia in Alzheimer's disease with delusions (10) Major neurocognitive disorder IVAN CARRIZALES MD Jan 05, 2021 08:22
--- NOTE | 2021-01-05 08:37 | PDOC ---
Exam Note: Gold Note: This note is a late entry for 01/04/2021 covers elements not covered in my initial note. Subjective: The patient was seen individually in the evening of 01/04/2021 with Frank GUTIERREZ, discussed and reviewed the chart. He slept 5 hours previous night. He had a good day, compliant with medications, wandering in his wheelchair. He remains confused. Review of Systems: Ambulation impaired. No CV, , pulmonary, eye, ENT system symptoms on review. Mental Status Exam: The patient is oriented to himself and situation. Speech has some latency, coherent. Often response is monosyllabic. Abstraction is fair. Computation impaired. Language function is intact. Mood and affect withdrawn. Laboratory Data: Reviewed. Impression: Major depressive disorder, severe. Major neurocognitive disorder vascular with depression, delusion. Anxiety disorder unspecified. Impulse control disorder unspecified. Plan: We are increasing the Exelon patch. Maintain Cymbalta. Abilify is to augment the Cymbalta and remains on Remeron 7.5 mg h.s. for his insomnia. Assessment: Vital Signs/I&O: Vital Signs Date Time Temp Pulse Resp B/P (MAP) Pulse Ox O2 Delivery O2 Flow Rate FiO2 01/05/21 08:16 67 129/75 01/05/21 06:14 97.7 18 94 01/04/21 15:54 Room Air I & O 01/04/21 01/04/21 01/05/21 15:00 23:00 07:00 Intake Total 600 ml 360 ml Balance 600 ml 360 ml Current Medications: Meds: Current Medications Medications (Trade) Dose Ordered Sig/Kaylee Route PRN Reason Start Time Stop Time Status Last Admin Dose Admin Multi-Ingredient Ointment (Analgesic [place]) 1 regina PRN QID PRN TP MUSCLE PAIN 01/01/21 15:30 Al Hydroxide/Mg Hydroxide (Mylanta Plus Xs) 15 ml PRN AFTMEALHC PRN PO DYSPEPSIA 01/01/21 15:30 Magnesium Hydroxide (Milk Of Magnesia) 2,400 mg PRN QHS PRN PO CONSTIPATION 01/01/21 15:30 Acetaminophen (Tylenol) 650 mg PRN Q4HRS PRN PO PAIN 01/01/21 15:30 Duloxetine HCl (Cymbalta) 60 mg DAILY PO 01/02/21 09:00 01/05/21 08:16 Glipizide (Glucotrol) 5 mg BIDWMEALS PO 01/01/21 17:00 01/05/21 08:16 Lisinopril (Prinivil) 20 mg DAILY PO 01/02/21 09:00 01/05/21 08:16 Diclofenac Sodium (Voltaren) 75 mg BID PO 01/01/21 21:00 01/05/21 08:17 Metformin HCl (Glucophage) 1,000 mg BIDWMEALS PO 01/01/21 17:00 01/05/21 08:16 Ondansetron HCl (Zofran Odt) 4 mg PRN Q6HRS PRN PO NAUSEA/VOMITING 01/01/21 16:00 Influenza Virus Vaccine Quadrival (Fluzone Quad Syringe) 0.5 ml ONCE ONCE VAX IM 01/02/21 09:00 01/02/21 09:01 DC 01/02/21 09:00 Rivastigmine (Exelon) 1 patch DAILY TD 01/03/21 09:00 01/05/21 09:00 01/05/21 08:17 Rivastigmine (Exelon) 1 patch DAILY TD 01/06/21 09:00 Aripiprazole (Abilify) 1 mg DAILY PO 01/03/21 09:00 01/05/21 08:16 Mirtazapine (Remeron) 7.5 mg QHS PO 01/02/21 21:00 01/04/21 20:29 Vitamin D (Vitamin D3) 50,000 unit WEEKLY PO 01/03/21 18:45 01/03/21 19:23 Cyanocobalamin (Vitamin B-12) 1,000 mcg 1X ONCE IM 01/03/21 18:45 01/03/21 18:46 DC 01/03/21 19:23 I have reviewed the current psychotropics carefully including drug interactions. Risk benefit ratio favors no change other than as noted in my dictated progress note. Diagnosis: Problems: (1) Impulse control disorder, unspecified (2) Major depressive disorder, recurrent episode, severe (3) Mild cognitive impairment (4) Anxiety disorder, unspecified (5) Dementia, vascular, with depression (6) Dementia, vascular, with delusions (7) Dementia of Alzheimer's type with behavioral disturbance (8) Dementia in Alzheimer's disease with depression (9) Dementia in Alzheimer's disease with delusions (10) Major neurocognitive disorder IVAN CARRIZALES MD Jan 05, 2021 08:37
--- NOTE | 2021-01-05 09:23 | NUR ---
Patient is calm and cooperative. patients stated he slept well and is isolating to his room.
[2021-01-05 11:32] LABS: BASO # 0.1 x10^3/uL (0.0-0.2); BASO % 1 % (0-3); EOS # 0.6 x10^3/uL (0.0-0.7); EOS % 6 % (0-3); HEMATOCRIT 36.8 % (39.0-53.0); LYMPH % 32 % (24-48); MEAN CORPUSCULAR HEMOGLOBIN 30 pg (25-35); MEAN CORPUSCULAR HGB CONC 33 g/dL (31-37); MEAN CORPUSCULAR VOLUME 93 fL (79-100); MONO # 0.7 x10^3/uL (0.0-1.1); MONO % 8 % (0-9); NEUT # 4.9 x10^3uL (1.8-7.7); NEUT % 53 % (31-73); PLATELET COUNT 297 x10^3/uL (140-400); RED BLOOD COUNT 3.96 x10^6/uL (4.30-5.70); RED CELL DISTRIBUTION WIDTH 14.3 % (11.5-14.5); WHITE BLOOD COUNT 9.4 x10^3/uL (4.0-11.0)
[2021-01-05 11:46] LABS: ALBUMIN 3.3 g/dL (3.4-5.0); ALBUMIN/GLOBULIN RATIO 1.1 (1.0-1.7); CALCIUM 9.1 mg/dL (8.5-10.1); CREATININE 1.5 mg/dL (0.7-1.3); GFR 46.4; POTASSIUM 4.7 mmol/L (3.5-5.1); TOTAL BILIRUBIN 0.3 mg/dL (0.2-1.0); TOTAL PROTEIN 6.3 g/dL (6.4-8.2)
--- NOTE | 2021-01-05 12:00 | NUR ---
Patient slouched over in wheelchair in the day room. upon assessment patient was cold and clammy. patient stated he was not feeling so good. Patient blood glucose was normal at that time but blood pressure was not able to be obtained and heart rate was decreased. A rapid response was called, while patient was taken to his bed. An ecg was taken and a 20g IV started on his left ac. Patient blood pressure and heart improved spontaneously. Blood draw was sent to the lab and patient was sent to the ICU for further monitoring. Patient family notified and updated. Nurse to nurse report to be given.
[2021-01-05] MEDS ORDERED: ARIP2TAB35 PO ×2 (15:50→16:07)
[2021-01-05] MEDS ORDERED: CHOL500021 PO (15:50)
[2021-01-05] MEDS ORDERED: ACET325T9 PO (15:51)
[2021-01-05] MEDS ORDERED: MAG10ORA PO (15:52)
[2021-01-05] MEDS ORDERED: MAGN24003 PO (15:54)
[2021-01-05] MEDS ORDERED: METH120C4 TP (15:56)
[2021-01-05] MEDS ORDERED: MIRT-37 PO ×2 (15:56→16:10)
[2021-01-05] MEDS ORDERED: RIVA1PAT23 TP (15:59)
[2021-01-05] MEDS ORDERED: GLIP5TAB10 PO (16:00)
[2021-01-05] MEDS ORDERED: METF10007 PO (16:01)
[2021-01-05] MEDS ORDERED: ONDA4TAB7 PO (16:06)
--- NOTE | 2021-01-05 22:05 | DS ---
DATE OF DISCHARGE: 01/05/2021 DISCHARGE SUMMARY/PSYCHIATRIC PROGRESS NOTE This note covers elements not covered in my initial note on 01/05/2021. REASON FOR ADMISSION: Please refer to the admission history for details. Briefly, the patient is a 70-year-old male referred [facility] on account of worsening symptoms of depression and after he talked to staff about overdosing on medications. He was depressed about his memory problems, withdrawn, hopeless, helpless, worthless, sleeping excessively and missing meals. He had failed outpatient psychiatric interventions resulting in this referral. SIGNIFICANT FINDINGS AND CLINICAL COURSE: Following admission, the patient was seen daily individually by myself from a psychiatric standpoint, medical followup with Dr. Dailey/Dr. Avendano. The patient remains somewhat withdrawn, depressed, was in his wheelchair, but gradually is attending more activities. Adjustments were made in his psychotropics and he appeared to be showing some improvement on Cymbalta 60 mg a day, which he was taking previously and this was augmented with Abilify 1 mg a day and started on Exelon patch 4.6 mg 3 days, then 9.5 mg a day and Remeron was started at 7.5 mg p.o. at bedtime, both for his insomnia and to help stimulate his appetite. Gradually mood appeared to improve, but on the . He seemed to have a syncopal episode and was in bigeminy. He was transferred to the ICU per Dr. Dailey. REVIEW OF SYSTEMS: Prior to discharge, ambulation impaired, in wheelchair. No CV, , pulmonary, eye system symptoms on review. MENTAL STATUS EXAM: Oriented to himself. Insight, judgment, recent and remote memory, attention, concentration, fund of knowledge poor, consistent with his diagnosis. FINAL DIAGNOSES: Major neurocognitive disorder, Alzheimer, vascular with delusion, depression, major depressive disorder, recurrent. Rest unchanged from admission. DISCHARGE MEDICATIONS: Please refer to the MRAD. DISCHARGE INSTRUCTIONS: Outpatient psychiatric and medical followup in the ICU, of if he is transferred to [place] then this will be continued there. MAN Rajinder CARRIZALES MD DR: DONNA/mackenzie JOB#: [id number] / [id number]
--- NOTE | 2021-01-05 22:07 | PDOC ---
Exam Note: Gold Note: Please also refer to the separate dictated note~for this date of service dictated separately.~Patient seen individually. Discussed the patient with Nursing staff reviewed the chart.~Reviewed interim history and current functioning. Reviewed vital signs,~Labs/ Radiology~and current medications noted below. Continue current treatment with the changes noted in the dictated addendum note Assessment: Vital Signs/I&O: Vital Signs Date Time Temp Pulse Resp B/P (MAP) Pulse Ox O2 Delivery O2 Flow Rate FiO2 01/05/21 08:16 67 129/75 01/05/21 06:14 97.7 18 94 01/04/21 15:54 Room Air I & O 01/04/21 01/04/21 01/05/21 15:00 23:00 07:00 Intake Total 600 ml 360 ml Balance 600 ml 360 ml Labs: Laboratory Tests Test 01/05/21 11:03 01/05/21 11:10 Glucose (Fingerstick) 157 mg/dL (70-99) H White Blood Count 9.4 x10^3/uL (4.0-11.0) Red Blood Count 3.96 x10^6/uL (4.30-5.70) L Hemoglobin 12.0 g/dL (13.0-17.5) L Hematocrit 36.8 % (39.0-53.0) L Mean Corpuscular Volume 93 fL (79-100) Mean Corpuscular Hemoglobin 30 pg (25-35) Mean Corpuscular Hemoglobin Concent 33 g/dL (31-37) Red Cell Distribution Width 14.3 % (11.5-14.5) Platelet Count 297 x10^3/uL (140-400) Neutrophils (%) (Auto) 53 % (31-73) Lymphocytes (%) (Auto) 32 % (24-48) Monocytes (%) (Auto) 8 % (0-9) Eosinophils (%) (Auto) 6 % (0-3) H Basophils (%) (Auto) 1 % (0-3) Neutrophils # (Auto) 4.9 x10^3uL (1.8-7.7) Lymphocytes # (Auto) 3.0 x10^3/uL (1.0-4.8) Monocytes # (Auto) 0.7 x10^3/uL (0.0-1.1) Eosinophils # (Auto) 0.6 x10^3/uL (0.0-0.7) Basophils # (Auto) 0.1 x10^3/uL (0.0-0.2) Sodium Level 143 mmol/L (136-145) Potassium Level 4.7 mmol/L (3.5-5.1) Chloride Level 108 mmol/L (98-107) H Carbon Dioxide Level 27 mmol/L (21-32) Anion Gap 8 (6-14) Blood Urea Nitrogen 28 mg/dL (8-26) H Creatinine 1.5 mg/dL (0.7-1.3) H Estimated GFR (Cockcroft-Gault) 46.4 BUN/Creatinine Ratio 19 (6-20) Glucose Level 172 mg/dL (70-99) H Lactic Acid Level 1.4 mmol/L (0.4-2.0) Calcium Level 9.1 mg/dL (8.5-10.1) Magnesium Level 1.7 mg/dL (1.8-2.4) L Total Bilirubin 0.3 mg/dL (0.2-1.0) Aspartate Amino Transferase (AST) 15 U/L (15-37) Alanine Aminotransferase (ALT) 19 U/L (16-63) Alkaline Phosphatase 46 U/L (46-116) Troponin I Quantitative < 0.017 ng/mL (0-0.055) Total Protein 6.3 g/dL (6.4-8.2) L Albumin 3.3 g/dL (3.4-5.0) L Albumin/Globulin Ratio 1.1 (1.0-1.7) Current Medications: I have reviewed the current psychotropics carefully including drug interactions. Risk benefit ratio favors no change other than as noted in my dictated progress note. Diagnosis: Problems: (1) Impulse control disorder, unspecified (2) Major depressive disorder, recurrent episode, severe (3) Anxiety disorder, unspecified (4) Dementia, vascular, with depression (5) Dementia, vascular, with delusions (6) Dementia of Alzheimer's type with behavioral disturbance (7) Dementia in Alzheimer's disease with depression (8) Dementia in Alzheimer's disease with delusions (9) Major neurocognitive disorder IVAN CARRIZALES MD Jan 05, 2021 22:07
--- NOTE | 2021-01-06 02:20 | PN ---
DATE: 01/04/2021 SUBJECTIVE: The patient denies any new medical or neurological complaints. He has had difficulty with walking and tendency to fall. Therefore, he uses a chair for ambulation. The patient denies headache, visual disturbances, nausea, vomiting, chest pain, shortness of breath or palpitation. He reported intermittent urinary incontinence. The patient also has history of dementia. OBJECTIVE: GENERAL: Well-developed, well-nourished male, not in acute distress. VITAL SIGNS: Blood pressure 150/83, respiratory rate 18, pulse is 80, temperature 97.2, oxygen saturation 99% on room air. HEENT: Normocephalic, atraumatic, otherwise unremarkable. NECK: Supple. Negative for carotid bruit, lymphadenopathy or thyromegaly. LUNGS: Clear to A and P. CARDIOVASCULAR: Normal S1, S2. However, the patient may have PVCs on auscultation. ABDOMEN: Soft. Bowel sounds positive. EXTREMITIES: Negative for cyanosis, clubbing or edema. NEUROLOGIC EXAM: The patient is awake, alert to himself, but he is disoriented to time and place. Speech is fluent, but late, but coherent. There is no language dysfunction. Memory, judgment, and abstracting thinking are fair. The patient denies hallucination or delusion. Cranial nerves are intact. No focal motor or sensory deficit. The strength is 4/5 throughout. Sensory examination revealed diminished pinprick and light touch senses in patchy distributions in distal lower extremities. Deep tendon reflexes were symmetric and hypoactive with absent Achilles responses. Gait: The stance is somewhat steady, but the patient has tendency to fall on sudden turning. IMPRESSION: 1. Dementia, anxiety disorder and intermittent suicidal ideations. 2. Multiple medical problems include chronic low back pain, peripheral neuropathy in the lower symptoms suggestive of peripheral neuropathy in the lower extremities, diabetes mellitus and chronic kidney disease. 3. Low vitamin B12. RECOMMENDATIONS: 1. Start the patient on vitamin B12 1000 mcg p.o. daily. 2. Continue with current medical and psychiatric care. 3. Physical therapy evaluation. M Saranya REGALADO MD DR: JENY/mackenzie JOB#: [id number] / [id number]
[2021-01-06] MEDS ORDERED: RIVASTIGMINE 9.5MG PATCH. TD SCH (09:00)
== END 2021-01-05 11:52 | disposition short-term general hospital (02) | DRG 885 ==
LOC: GEROPSY 14:50
PROVIDERS: ADMIT Psychiatry & Neurology Psychiatry; ATTEND Psychiatry & Neurology Psychiatry
DX: F33.3 Major depressive disorder, recurrent, severe with psychotic symptoms (principal); F01.51 Vascular dementia, unspecified severity, with behavioral disturbance; N18.9 Chronic kidney disease, unspecified; F02.81 Dementia in other diseases classified elsewhere, unspecified severity, with behavioral disturbance; R45.851 Suicidal ideations; F41.9 Anxiety disorder, unspecified; F63.9 Impulse disorder, unspecified; G30.9 Alzheimer's disease, unspecified; G89.29 Other chronic pain; R32 Unspecified urinary incontinence; Z91.14 Patient's other noncompliance with medication regimen; Z91.19 Patient's noncompliance with other medical treatment and regimen; Z91.5 Personal history of self-harm; G47.00 Insomnia, unspecified; E11.22 Type 2 diabetes mellitus with diabetic chronic kidney disease; Z79.4 Long term (current) use of insulin; Z99.3 Dependence on wheelchair
CPT/HCPCS: 36415; 70450; 80053; 80061; 81001; 82306; 82607; 82947; 83036; 83540; 83550; 83605; 83735; 84436; 84443; 84480; 84484; 85025; 85379; 86592; 90471; 90686; 93005; J3420; 97530; 97535

== ENCOUNTER 2021-01-05 11:52 | Inpatient (IN) | payer MEDICARE, MEDICAID ==
[~2021-01-05] VITALS: Ht 172.7 cm; Wt 192.0 kg
[~2021-01-05 11:52] MED LIST: ACET325T21 PO; DICL75TA PO; DULO60CA6 PO; GLIP5TAB10 PO; LISI20TA18 PO; METF1000 PO; ONDA-84 PO
--- NOTE | 2021-01-05 12:00 | NUR ---
The patient, ELIN ALDRIDGE, 70 y/o, M admitted by KORINA REYES MD, was given written information regarding hospital policies, unit procedures and contact persons. Valuables were checked and left in patients room. Pt denies SI at this time. Pt was left lying comfortably in bed and is eating his lunch. pt is asymptomatic at this time. Will CTM and assess as needed.
--- NOTE | 2021-01-05 12:33 | EKG ---
[address] [address] Test Date: 2021-01-05 Test Time: 11:21:47 Pat Name: ELIN ALDRIDGE Department: Room: [place] [address] Gender: M Cage Operator: : [id number] Requested By: KORINA REYES Order Number: [id number] Reading MD: Measurements Intervals Delta Rate: P: [place]: QRS: QRSD: T: QT: QTc: Interpretive Statements
[2021-01-05] MEDS ORDERED: MAGNESIUM SULFATE 2GM 50 ML IV ONE (12:45)
--- NOTE | 2021-01-05 12:49 | RAD ---
EXAM: Chest, single view. HISTORY: Syncope. COMPARISON: None. FINDINGS: Frontal views of the chest are obtained. There is no infiltrate, pleural effusion or pneumo thorax. The heart is normal in size. IMPRESSION: No acute pulmonary finding. Electronically signed by: Arline Ohara MD (01/05/2021 12:47 PM) [id number]
[2021-01-05] MEDS ORDERED: CHOL500021 PO (15:50)
[2021-01-05] MEDS ORDERED: ARIP2TAB35 PO ×2 (15:50→16:07)
[2021-01-05] MEDS ORDERED: ACET325T9 PO (15:51)
[2021-01-05] MEDS ORDERED: MAG10ORA PO (15:52)
[2021-01-05] MEDS ORDERED: MAGN24003 PO (15:54)
[2021-01-05] MEDS ORDERED: MIRT-37 PO ×2 (15:56→16:10)
[2021-01-05] MEDS ORDERED: METH120C4 TP (15:56)
[2021-01-05] MEDS ORDERED: RIVA1PAT23 TP (15:59)
[2021-01-05] MEDS ORDERED: GLIP5TAB10 PO (16:00)
[2021-01-05] MEDS ORDERED: METF10007 PO (16:01)
[2021-01-05] MEDS ORDERED: ONDA4TAB7 PO (16:06)
[2021-01-05 16:15] VITALS: BP 123/67
[2021-01-05] MEDS ORDERED: MAG HYDROX/AL HYDROX/SIMETH 30 ML ORAL.SUSP PO PRN (16:30)
[2021-01-05] MEDS ORDERED: NON FORMULARY ITEM (Ondansetron Hcl 4 MG) PO PRN (16:30)
[2021-01-05] MEDS ORDERED: ACETAMINOPHEN 325 MG TABLET PO PRN ×2 (16:30)
[2021-01-05] MEDS ORDERED: metFORMIN 500 MG TABLET PO SCH ×2 (17:00→17:30)
[2021-01-05] MEDS ORDERED: MAGNESIUM HYDROXIDE 2,400 MG/30 ML ORAL.SUSP. PO PRN (17:15)
[2021-01-05] MEDS ORDERED: ONDANSETRON ODT 4 MG TAB.RAPDIS PO PRN (17:15)
[2021-01-05] MEDS ORDERED: METHYL SALICYLATE/MENTHOL TOPICAL OINTMENT 57GM TUBE. TP PRN (17:15)
[2021-01-05] MEDS ORDERED: glipiZIDE 5 MG TABLET PO SCH ×2 (17:30→21:00)
--- NOTE | 2021-01-05 17:56 | SSS ---
ADMIT DATE: 01/05/2021 HISTORY OF PRESENT ILLNESS: The patient is a 70-year-old male patient, a resident at [facility] in [place], who was referred to [facility] on account of worsening symptoms of depression, consequent to him, recognizing his short-term memory loss and suicidal ideation. He has been talking to the nursing staff about overdosing. He was depressed about his impaired memory, sleeping excessively, missing meals, therefore noncompliant with treatment and therefore, the patient was admitted to [facility] for inpatient psychiatric stabilization. Apparently, he was found slumped in his wheelchair, unresponsive, according to nursing staff, his heart rate was down to 20 beats per minute and blood pressure was in the 70s and he has had an EKG done and had IV lines started and was transferred to ICU. His EKG showed that the patient was in regular rhythm, no P waves and possible right bundle-branch block and was immediately transferred down to the ICU. By the time he arrived to the ICU, his heart rate was 58 beats per minute. He denied any chest pain or shortness of breath. He was not on any calcium channel sofia or beta blockers. We did some lab work including a CBC and CMP, his chemistry showed that his magnesium was low at 1.7, calcium was normal. His first set of cardiac enzymes showed troponin to be less than 0.17 and his D-dimer was only 0.3. His family insisted that he wanted to be transferred to [facility] and therefore he was transferred for further evaluation there. PAST MEDICAL HISTORY: Significant for chronic low back pain, unsteady feet, type 2 diabetes mellitus and Alzheimer's disease. PAST SURGICAL HISTORY: Unremarkable. ALLERGIES: He has no known drug allergies. MEDICATIONS: He is currently on following medications: He is on lisinopril 20 mg once a day, diclofenac sodium 75 mg twice a day, acetaminophen 650 mg every 4 hours, duloxetine 60 mg daily, Zofran 4 mg every 6 hours, metformin 1000 mg twice a day and glipizide 5 mg twice a day. FAMILY HISTORY: Noncontributory. SOCIAL HISTORY: He is ; however, he currently resides at [facility] in [place]. He does not smoke, drink alcohol or use any recreational drugs. REVIEW OF SYSTEMS: As per history of present illness. PHYSICAL EXAMINATION: GENERAL: On examining him when he arrived to the ICU, he looked well, slightly pale, but no jaundice, cyanosis or thyromegaly. No jugular venous distention. No limb edema. VITAL SIGNS: His heart rate was 67, blood pressure was 129/75, temperature 97.7, respiratory rate was 18 and oxygen saturation was 94% on room. HEAD, EYES, EARS, NOSE AND THROAT: Normocephalic, atraumatic. NECK: Supple. HEART: Showed normal first and second heart sounds. No gallop, rub or murmur. CHEST: Clear to auscultation. No crepitation or rhonchi. ABDOMEN: Distended, soft, nontender. NEUROLOGIC: He is demented, but without any obvious lateralizing sign. He responds appropriately at times, sometimes very slow to respond. LABORATORY DATA: Showed a white cell count 9400, hemoglobin 12, hematocrit 36, MCV 93, and platelet count 297,000. His chemistry showed a serum sodium 143, potassium 4.7, chloride 108, bicarbonate 27, anion gap of 8, BUN 28, creatinine 1.5, estimated GFR was 46 mL per minute, his glucose 172. Lactic acid is 1.4, magnesium was 1.7. Total bilirubin, AST, ALT, alkaline phosphatase were normal. Total protein 6.3, albumin was 3.3. ASSESSMENT AND PLAN: The patient will be transferred to [facility] for syncopal episode and marked bradycardia with a heart rate that dropped down to 20. We will consult the cardiology team. I do 2 more sets of cardiac enzymes and check his fasting lipid profile tomorrow and decide on further management accordingly. KORINA REYES MD DR: JAMSE/mackenzie JOB#: [id number] / [id number]
[2021-01-05 18:15] VITALS: BP 133/71
--- NOTE | 2021-01-05 18:45 | NUR ---
CONSENT FORMS FOR TRANSFER SIGNED AND WERE LEFT IN CHART. VERIFIED VIA TELEPHONE WITH PT'S , JOAQUIN. PT IV REMAINS IN PLACE. VS ARE STABLE AT THIS TIME. EMS AT BEDSIDE TO TRANSFER PATIENT TO [place] WITH TELEMETRY MONITORING IN PLACE. PT IS DISCHARGED FROM HOSPITAL.
[2021-01-05] MEDS ORDERED: DICLOFENAC SODIUM 25 MG TABLET.DR PO SCH (21:00)
[2021-01-05] MEDS ORDERED: NON FORMULARY ITEM (Metformin Hcl 1 TAB) PO SCH (21:00)
[2021-01-05] MEDS ORDERED: MIRTAZAPINE 7.5 MG TABLET. PO SCH (21:00)
[2021-01-06] MEDS ORDERED: RIVASTIGMINE 9.5MG PATCH. TD SCH (09:00)
[2021-01-06] MEDS ORDERED: DULoxetine HCL 60 MG CAPSULE.DR PO SCH (09:00)
[2021-01-06] MEDS ORDERED: ARIPiprazole 2 MG TABLET PO SCH (09:00)
[2021-01-06] MEDS ORDERED: LISINOPRIL 20 MG TABLET PO SCH (09:00)
[2021-01-10] MEDS ORDERED: CHOLECALCIFEROL (VITAMIN D3) 50,000 UNIT CAPSULE PO SCH (09:00)
== END 2021-01-05 18:45 | disposition short-term general hospital (02) | DRG 315 ==
LOC: ICU 11:52
PROVIDERS: ADMIT Internal Medicine; ATTEND Internal Medicine
DX: I95.9 Hypotension, unspecified (principal); Z68.44 Body mass index [BMI] 60.0-69.9, adult; R00.1 Bradycardia, unspecified; E66.01 Morbid (severe) obesity due to excess calories; I45.10 Unspecified right bundle-branch block; E11.9 Type 2 diabetes mellitus without complications; F02.80 Dementia in other diseases classified elsewhere, unspecified severity, without behavioral disturbance, psychotic disturbance, mood disturbance, and anxiety; G30.9 Alzheimer's disease, unspecified; Z91.19 Patient's noncompliance with other medical treatment and regimen; G89.29 Other chronic pain
CPT/HCPCS: 71045; 93005; J3475